=== PATIENT | female | born 1960 | race Caucasian/White ===

== ENCOUNTER → 2017-09-27 | Outpatient (CLI) | payer BC ==
[2017-09-27 08:36] LABS: ADD MAN DIFF? NO
[2017-09-27 08:38] LABS: BASOPHILS % 0.3 % (0.0-2.0); EOSINOPHILS # 0.1 10^3/ul (0.0-0.5); EOSINOPHILS % 1.1 % (0.0-7.0); HEMATOCRIT 42.4 % (37.0-47.0); HEMOGLOBIN 13.8 g/dl (12.0-16.0); LYMPHOCYTES # 2.2 10^3/ul (0.8-2.9); LYMPHOCYTES % 34.7 % (15.0-51.0); MEAN CORPUSCULAR HEMOGLOBIN 28.9 pg (29.0-33.0); MEAN CORPUSCULAR HGB CONC 32.5 g/dl (32.0-37.0); MEAN CORPUSCULAR VOLUME 88.9 fl (82.0-101.0); MEAN PLATELET VOLUME 10.3 fl (7.4-10.4); MONOCYTE # 0.6 10^3/ul (0.3-0.9); MONOCYTES % 9.1 % (0.0-11.0); NEUTROPHIL # 3.4 10^3/ul (1.6-7.5); NEUTROPHILS % 54.6 % (39.0-77.0); PLATELET COUNT 219 10^3/UL (140-415); RED BLOOD COUNT 4.77 10^6/ul (4.20-5.40); RED CELL DISTRIBUTION WIDTH 13.7 % (11.5-14.5)
[2017-09-27 08:38] LABS: WHITE BLOOD COUNT 6.3 10^3/ul (4.8-10.8)
[2017-09-27 08:54] LABS: HEMOGLOBIN A1C 5.5 % (0-5.9)
[2017-09-27 08:58] LABS: ALANINE AMINOTRANSFERASE 32 IU/L (13-69); ALBUMIN 4.6 g/dl (3.3-4.9); ALBUMIN/GLOBULIN RATIO 1.43; ALKALINE PHOSPHATASE 80 IU/L (42-121); ANION GAP 14 (8-16); ASPARTATE AMINO TRANSFERASE 25 IU/L (15-46); BILIRUBIN,INDIRECT 0.2 mg/dl (0-1.1); BILIRUBIN,TOTAL 0.2 mg/dl (0.2-1.3); BLOOD UREA NITROGEN 21 mg/dl (7-20); CALCIUM 9.1 mg/dl (8.4-10.2); CARBON DIOXIDE 27 mmol/L (21-31); CHLORIDE 106 mmol/L (97-110); CHOL/HDL RATIO 3.2 RATIO; CHOLESTEROL 175 mg/dl (100-200); CREATININE 0.86 mg/dl (0.44-1.00); GLUCOSE 97 mg/dl (70-220); HDL CHOLESTEROL 54 mg/dl (37-92); LDL CHOLESTEROL,CALCULATED 104 mg/dl; POTASSIUM 4.4 mmol/L (3.5-5.1); SODIUM 143 mmol/L (135-144); TOTAL PROTEIN 7.8 g/dl (6.1-8.1); TRIGLYCERIDES 86 mg/dl (0-149)
[2017-09-27 09:29] LABS: T4 (THYROXINE) 9.9 ug/dl (5.5-11.0)
== END | disposition home or self-care (01) ==
LOC: LAB 08:17
DX: D64.9 Anemia, unspecified (principal); E78.5 Hyperlipidemia, unspecified; R73.03 Prediabetes
CPT/HCPCS: 80053; 80061; 83036; 84436; 84443; 85025

== ENCOUNTER → 2017-12-24 | Outpatient (CLI) | payer BC ==
[2017-12-24 16:02] LABS: ADD MAN DIFF? NO
[2017-12-24 16:08] LABS: BASOPHILS % 0.4 % (0.0-2.0); EOSINOPHILS # 0.1 10^3/ul (0.0-0.5); EOSINOPHILS % 0.8 % (0.0-7.0); HEMATOCRIT 41.8 % (37.0-47.0); HEMOGLOBIN 13.8 g/dl (12.0-16.0); LYMPHOCYTES # 2.7 10^3/ul (0.8-2.9); LYMPHOCYTES % 29.9 % (15.0-51.0); MEAN CORPUSCULAR VOLUME 87.8 fl (82.0-101.0); MEAN PLATELET VOLUME 10.4 fl (7.4-10.4); MONOCYTE # 0.9 10^3/ul (0.3-0.9); MONOCYTES % 10.3 % (0.0-11.0); NEUTROPHIL # 5.3 10^3/ul (1.6-7.5); NEUTROPHILS % 58.5 % (39.0-77.0); PLATELET COUNT 202 10^3/UL (140-415); RED BLOOD COUNT 4.76 10^6/ul (4.20-5.40); RED CELL DISTRIBUTION WIDTH 13.5 % (11.5-14.5)
[2017-12-24 16:25] LABS: ALANINE AMINOTRANSFERASE 29 IU/L (13-69); ALBUMIN 4.2 g/dl (3.3-4.9); ALBUMIN/GLOBULIN RATIO 1.27; ALKALINE PHOSPHATASE 101 IU/L (42-121); ANION GAP 14 (8-16); ASPARTATE AMINO TRANSFERASE 25 IU/L (15-46); BLOOD UREA NITROGEN 23 mg/dl (7-20); CALCIUM 9.6 mg/dl (8.4-10.2); CARBON DIOXIDE 29 mmol/L (21-31); CHLORIDE 105 mmol/L (97-110); CREATININE 0.92 mg/dl (0.44-1.00); GLUCOSE 99 mg/dl (70-220); LACTATE DEHYDROGENASE 461 IU/L (313-618); SODIUM 144 mmol/L (135-144); TOTAL PROTEIN 7.5 g/dl (6.1-8.1)
[2017-12-24 17:19] LABS: ERYTHROCYTE SEDIMENTATION RATE 7 mm/Hr (0-30)
== END | disposition home or self-care (01) ==
LOC: LAB 15:13
DX: D64.9 Anemia, unspecified (principal); D46.9 Myelodysplastic syndrome, unspecified; J18.9 Pneumonia, unspecified organism
CPT/HCPCS: 71046; 80053; 83615; 85025; 85651

== ENCOUNTER → 2018-01-23 | Outpatient (CLI) | payer BC | END | disposition home or self-care (01) | LOC: RAD 15:13 | DX: R10.9 Unspecified abdominal pain (principal); M51.36 Other intervertebral disc degeneration, lumbar region | CPT/HCPCS: 74018 ==

== ENCOUNTER → 2018-08-30 | Outpatient (CLI) | payer BC ==
[2018-08-30 08:10] LABS: ADD MAN DIFF? NO
[2018-08-30 08:16] LABS: BASOPHILS % 0.6 % (0.0-2.0); EOSINOPHILS # 0.1 10^3/ul (0.0-0.5); EOSINOPHILS % 1.3 % (0.0-7.0); HEMATOCRIT 42.2 % (37.0-47.0); HEMOGLOBIN 13.7 g/dl (12.0-16.0); LYMPHOCYTES # 1.7 10^3/ul (0.8-2.9); LYMPHOCYTES % 32.4 % (15.0-51.0); MEAN CORPUSCULAR HEMOGLOBIN 28.7 pg (29.0-33.0); MEAN CORPUSCULAR HGB CONC 32.5 g/dl (32.0-37.0); MEAN CORPUSCULAR VOLUME 88.5 fl (82.0-101.0); MEAN PLATELET VOLUME 10.5 fl (7.4-10.4); MONOCYTE # 0.6 10^3/ul (0.3-0.9); MONOCYTES % 10.2 % (0.0-11.0); NEUTROPHILS % 55.1 % (39.0-77.0); PLATELET COUNT 207 10^3/UL (140-415); RED BLOOD COUNT 4.77 10^6/ul (4.20-5.40); RED CELL DISTRIBUTION WIDTH 13.5 % (11.5-14.5)
[2018-08-30 08:16] LABS: WHITE BLOOD COUNT 5.4 10^3/ul (4.8-10.8)
[2018-08-30 08:28] LABS: HEMOGLOBIN A1C 5.4 % (0-5.9)
[2018-08-30 08:40] LABS: ALANINE AMINOTRANSFERASE 25 IU/L (13-69); ALBUMIN 4.2 g/dl (3.3-4.9); ALBUMIN/GLOBULIN RATIO 1.68; ALKALINE PHOSPHATASE 80 IU/L (42-121); ANION GAP 11 (5-13); ASPARTATE AMINO TRANSFERASE 24 IU/L (15-46); BILIRUBIN,INDIRECT 0.3 mg/dl (0-1.1); BILIRUBIN,TOTAL 0.3 mg/dl (0.2-1.3); BLOOD UREA NITROGEN 18 mg/dl (7-20); CALCIUM 9.6 mg/dl (8.4-10.2); CARBON DIOXIDE 30 mmol/L (21-31); CHLORIDE 102 mmol/L (97-110); CHOL/HDL RATIO 3.4 RATIO; CHOLESTEROL 197 mg/dl (100-200); CREATININE 0.81 mg/dl (0.44-1.00); Estimated GFR > 60 mL/min (>60); GLUCOSE 100 mg/dl (70-220); HDL CHOLESTEROL 57 mg/dl (37-92); LDL CHOLESTEROL,CALCULATED 124 mg/dl; POTASSIUM 4.4 mmol/L (3.5-5.1); SODIUM 143 mmol/L (135-144); TOTAL PROTEIN 6.7 g/dl (6.1-8.1); TRIGLYCERIDES 80 mg/dl (0-149)
[2018-08-30 09:41] LABS: T4 (THYROXINE) 8.7 ug/dl (5.5-11.0)
== END | disposition home or self-care (01) ==
LOC: LAB 06:56
DX: E78.5 Hyperlipidemia, unspecified (principal); D64.9 Anemia, unspecified; E03.9 Hypothyroidism, unspecified
CPT/HCPCS: 80053; 80061; 83036; 84436; 84443; 85025

== ENCOUNTER → 2018-12-09 | Outpatient (CLI) | payer BC | END | disposition home or self-care (01) | LOC: U/S 07:55 | DX: R10.9 Unspecified abdominal pain (principal) | CPT/HCPCS: 76700 ==

== ENCOUNTER 2018-12-12 05:39 | Day surgery (SDC) | payer BC ==
[2018-12-12] MEDS ORDERED: FENTAnyl 50 MCG/ML VIAL (08:03)
[2018-12-12] MEDS ORDERED: MIDAZOLAM 1 MG/ML 2 ML INJ ×2 (08:03)
== END 2018-12-12 09:38 | disposition home or self-care (01) ==
LOC: GIL 05:39
DX: K21.9 Gastro-esophageal reflux disease without esophagitis (principal); K29.60 Other gastritis without bleeding; I10 Essential (primary) hypertension
CPT/HCPCS: 43239; 88305; 88312

== ENCOUNTER → 2019-01-02 | Outpatient (CLI) | payer BC ==
[2019-01-02 10:48] LABS: ADD MAN DIFF? NO
[2019-01-02 10:57] LABS: BASOPHILS % 0.5 % (0.0-2.0); EOSINOPHILS # 0.1 10^3/ul (0.0-0.5); EOSINOPHILS % 1.2 % (0.0-7.0); HEMATOCRIT 44.8 % (37.0-47.0); HEMOGLOBIN 14.5 g/dl (12.0-16.0); LYMPHOCYTES # 2.2 10^3/ul (0.8-2.9); LYMPHOCYTES % 32.9 % (15.0-51.0); MEAN CORPUSCULAR HEMOGLOBIN 28.5 pg (29.0-33.0); MEAN CORPUSCULAR HGB CONC 32.4 g/dl (32.0-37.0); MEAN CORPUSCULAR VOLUME 88.2 fl (82.0-101.0); MEAN PLATELET VOLUME 11.1 fl (7.4-10.4); MONOCYTE # 0.6 10^3/ul (0.3-0.9); MONOCYTES % 8.8 % (0.0-11.0); NEUTROPHIL # 3.7 10^3/ul (1.6-7.5); NEUTROPHILS % 56.3 % (39.0-77.0); PLATELET COUNT 215 10^3/UL (140-415); RED BLOOD COUNT 5.08 10^6/ul (4.20-5.40); RED CELL DISTRIBUTION WIDTH 13.4 % (11.5-14.5)
[2019-01-02 10:57] LABS: WHITE BLOOD COUNT 6.6 10^3/ul (4.8-10.8)
[2019-01-02 11:17] LABS: ALANINE AMINOTRANSFERASE 21 IU/L (13-69); ALBUMIN 4.4 g/dl (3.3-4.9); ALBUMIN/GLOBULIN RATIO 1.29; ALKALINE PHOSPHATASE 87 IU/L (42-121); ANION GAP 9 (5-13); ASPARTATE AMINO TRANSFERASE 25 IU/L (15-46); BILIRUBIN,INDIRECT 0.3 mg/dl (0-1.1); BILIRUBIN,TOTAL 0.3 mg/dl (0.2-1.3); BLOOD UREA NITROGEN 16 mg/dl (7-20); CALCIUM 10.2 mg/dl (8.4-10.2); CARBON DIOXIDE 28 mmol/L (21-31); CHLORIDE 107 mmol/L (97-110); CHOL/HDL RATIO 3.9 RATIO; CHOLESTEROL 206 mg/dl (100-200); CREATININE 0.86 mg/dl (0.44-1.00); Estimated GFR > 60 mL/min (>60); GLUCOSE 93 mg/dl (70-220); HDL CHOLESTEROL 52 mg/dl (37-92); LDL CHOLESTEROL,CALCULATED 124 mg/dl; POTASSIUM 4.7 mmol/L (3.5-5.1); SODIUM 144 mmol/L (135-144); TOTAL PROTEIN 7.8 g/dl (6.1-8.1); TRIGLYCERIDES 151 mg/dl (0-149)
[2019-01-02 12:02] LABS: ERYTHROCYTE SEDIMENTATION RATE 10 mm/Hr (0-30)
[2019-01-02 15:31] LABS: T4 (THYROXINE) 8.7 ug/dl (5.5-11.0)
== END | disposition home or self-care (01) ==
LOC: LAB 10:12
DX: D64.9 Anemia, unspecified (principal); E55.9 Vitamin D deficiency, unspecified; R73.03 Prediabetes; E78.5 Hyperlipidemia, unspecified
CPT/HCPCS: 80053; 80061; 82306; 82607; 84436; 84443; 85025; 85651

== ENCOUNTER → 2019-02-12 | Outpatient (CLI) | payer BC | END | disposition home or self-care (01) | LOC: C/S 16:30 | DX: R10.9 Unspecified abdominal pain (principal); K57.30 Diverticulosis of large intestine without perforation or abscess without bleeding; K76.0 Fatty (change of) liver, not elsewhere classified; R16.0 Hepatomegaly, not elsewhere classified | CPT/HCPCS: 74177 ==